=== PATIENT | female | born 1990 | race Caucasian/White ===

== ENCOUNTER 2025-02-22 14:19 | Emergency (ER) | payer MEDICAID ==
[~2025-02-22] VITALS: Ht 180.3 cm; Wt 103.2 kg
[2025-02-22 14:26] VITALS: BP 149/62; PULSE 84; TEMP 98.2; O2SAT 99
--- NOTE | 2025-02-22 15:01 | Physician Documentation ---
History of Present Illness ~ Chief Complaint: Back Pain Stated Complaint: BACK PAIN Time Seen by MD: 14:35 Primary Medical Doctor: [facility] Patient is a very pleasant 35-year-old female that presents to the emergency department for evaluation of back pain times 2-3 days. Patient reports she has a history of sciatica. This feels very much like sciatica but feels worse than her previous episode. Patient denies any new injuries although she was twisting during an activity 2-3 days ago. Patient any recent falls slips trauma. Patient denies any incontinence of bowel or bladder any numbness to her perineal area reports numbness and tingling down the right leg from the back and buttock. Patient denies numbness and tingling in her upper extremities or her left side. Patient denies fever chills nausea vomiting diarrhea at this time. Medication Reconciliation Allergies: Coded Allergies: No Known Allergies (Unverified , 02/22/25) Review of Systems ROS As stated above in the HPI, otherwise all systems are reviewed and negative. Physical Exam Physical Exam Vital Signs: Temperature: 98.2, Source: Temporal, Heart Rate: 84, Respiratory Rate: 18, BP: 149/62, Pulse Oximetry: 99, Weight: 103.200 Oxygen Flow Rate: 0 Physical Exam VITALS: Reviewed and as above. GENERAL: Alert, no apparent distress. BACK: No CVA tenderness, or swelling MUSCULOSKELETAL No deformities, no edema, focal pain with palpation to the lower right side of the lumbosacral region, positive straight leg raise on the associated side during examination. SKIN: Warm and dry, no rash NEURO: Oriented x4, No motor or sensory deficit PSYCH: Normal mood and affect, no agitation Progress Results/Orders Results/Orders Completed Orders - LOLA RODRIGUEZ Ketorolac Trometh 30mg/Ml Vial (Toradol (02/22/25 14:40) Methylprednisolone Sod Succ (Solumedrol (02/22/25 14:40) Ondansetron Disint. Tablet (Zofran Odt T (02/22/25 16:10) Medications Received in ER Medications (Trade) Dose Ordered Sig/[place] Route PRN Reason Start Time Stop Time Status Last Admin Dose Admin (Toradol inj. 30mg/ml) 30 mg ONCE ONCE IV 02/22/25 14:40 02/22/25 14:41 DC 02/22/25 16:00 30 MG (SoluMEDROL 125mg inj) 125 mg ONCE ONCE IM 02/22/25 14:40 02/22/25 14:41 DC 02/22/25 16:00 125 MG (Zofran ODT tablet) 4 mg ONCE ONCE PO 02/22/25 16:10 02/22/25 16:11 DC 02/22/25 16:33 4 MG Vital Signs 02/22/25 02/22/25 14:26 16:00 Temp 98.2 Pulse 84 Resp 18 16 B/P (MAP) 149/62 Pulse Ox 99 O2 Flow Rate 0 Medical Decision Making Additional information obtaine: other Findings Medical Decision-Making (MDM): 35-year-old female presented with acute back pain and right-sided sciatica, similar to prior episodes but more severe. No history of trauma, recent falls, or new injuries. Denies bowel/bladder incontinence, saddle anesthesia, or progressive motor deficits. No constitutional symptoms. Received ketorolac 30 mg IV and methylprednisolone 125 mg IV in the ED. Assessment: Clinical presentation consistent with acute exacerbation of sciatica, likely secondary to lumbar radiculopathy. No red flag symptoms (e.g., cauda equina, infection, malignancy, fracture) identified. No indication for urgent imaging or surgical referral at this time. Management: Conservative therapy recommended: Most cases of acute low back pain and sciatica improve with time and conservative management. Pharmacologic treatment: NSAIDs (e.g., ketorolac) are appropriate for short-term pain relief; systemic steroids have limited evidence for benefit in sciatica and are not routinely recommended. Nonpharmacologic options: Advise patient to remain active as tolerated, avoid bed rest, and consider physical therapy if symptoms persist. Patient education: Provided reassurance regarding favorable prognosis and discussed expected course of recovery. Reviewed warning signs (new/worsening weakness, bowel/bladder dysfunction, saddle anesthesia) that would warrant prompt re-evaluation. Disposition: Patient stable for discharge. No evidence of serious underlying pathology. Return precautions discussed. Outpatient follow-up recommended if symptoms persist or worsen. Shared decision-making utilized. Risks, benefits, and alternatives to current management discussed. Patient agrees with plan. Differential Dx:Considerations: Musculoskeletal pain, Strain, Urinary tract infection, Other Departure Disposition: HOME / SELF CARE / HOMELESS Impression: Primary Impression: Back problem Additional Impressions: Low back pain Lumbar sprain Sciatica Condition: Stable Discharge Instructions: Sciatica, Lumbosacral Strain Additional Instructions: You were seen today for back pain with symptoms of sciatica. This is a common condition that usually improves over time. You received medications in the emergency department to help with pain and inflammation, and you will be prescribed a short course of Flexeril (a muscle relaxant) to take at night. What to expect: Most people with sciatica get better within a few weeks, even without special treatment. It is important to stay as active as you can. Avoid staying in bed for long periods, as movement helps your recovery. Medications: Take Flexeril as prescribed, usually at bedtime. You may use [id number] pain relievers like ibuprofen (Advil, Motrin) or acetaminophen (Tylenol) if needed, following package instructions. If you have any side effects from your medications (such as stomach pain, rash, or unusual drowsiness), stop taking them and contact your doctor. Activity and self-care: Try to keep up with your usual activities as much as possible. Gentle stretching and walking are encouraged. Applying heat (like a heating pad) to your back may help with pain. Physical therapy may be helpful if your pain does not improve or if you have tr ouble moving around. When to seek medical attention: Call your doctor or return to the emergency department if you experience: New or worsening weakness in your legs Loss of control of your bladder or bowels Numbness in your groin or around your anus Severe pain that does not improve with medication Follow-up: If your symptoms do not improve in a few weeks, or if you have any concerns, schedule a follow-up appointment with your primary care provider. Referrals: NO PRIMARY CARE PROVIDER (PCP) Prescriptions Cyclobenzaprine* (Cyclobenzaprine*) 10 Mg Tablet 1 TAB PO HS for 7 Days, #7 TAB Prov: LOLA RODRIGUEZ 02/22/25 Education Educated: Patient Educated regarding: diagnosis, treatment, need for follow up Signature Scribe Signature: A Attestation: Scribed for Lola Rodriguez by JUAN ALBERTO Salgado . 02/22/25 17:25 LOLA RODRIGUEZ Feb 22, 2025 15:01
[2025-02-22] MEDS: ketorolac trometh 30MG/ML vial 30 MG/ML VIAL IV ONE (16:00)
[2025-02-22] MEDS: ondansetron 4mg rapidly disintigrating tab PO ONE (16:33)
[2025-02-22] MEDS ORDERED: CYCL-1 PO (17:25)
[2025-02-22 17:32] VITALS: RESP 16
== END 2025-02-22 17:45 | disposition home or self-care (01) ==
LOC: ER 14:20
DX: S33.5XXA Sprain of ligaments of lumbar spine, initial encounter (principal); M54.50 Low back pain, unspecified; M54.31 Sciatica, right side; X58.XXXA Exposure to other specified factors, initial encounter; Y93.89 Activity, other specified; Y92.89 Other specified places as the place of occurrence of the external cause; Y99.8 Other external cause status
CPT/HCPCS: 96372; 96374; 99284; J1885; J2919